=== PATIENT | male | born 1990 | race African-American/Black ===

== ENCOUNTER 2017-01-21 20:11 | Emergency (ER) | payer SELFPAY ==
[~2017-01-21] VITALS: Ht 177.8 cm; Wt 66.2 kg
[~2017-01-21 20:11] MED LIST: FAMO-137 PO; NO ROUTINE MEDS; PROC-14 PO
--- OUTSIDE RECORDS SUMMARY | 2017-01-21 20:16 | XMS REPORT | Continuity of Care Document ---
Author Author [facility] Organization [facility] Address Unknown Phone Unavailable Support Name Relationship Address Phone JAMILAH LANDEROS MD Caregiver [address] [place] [address] [place] [address] Unavailable TRACEE COLINDRES Next Of Kin [address] [place] [address] Insurance Providers Guarantor Thierry Colindres Address [address] [place] [address] Email DENIED TO PT PORTAL Payer Self Pay Subscriber's Name Thierry Colindres Relationship 18 Self Chief Complaint and Reason for Visit Chief Complaint Abdominal Pain Reason for Visit Gastritis Duodenal ulcer Problems Active Problems Medical Problem Onset Date Status Epigastric abdominal pain Unknown Nausea and vomiting Unknown Past Problems Medical Problem Onset Date Anemia Unknown Duodenal ulcer Unknown GI bleed Unknown Gastritis Unknown Medications Current Home Medications Medication Dose Units Route Directions Days Qty Instructions Start Date Famotidine (Pepcid) 20 Mg Tablet 40 Mg Oral Daily 60 Tablet No Routine Meds 09/10/16 Prochlorperazine Maleate (Compazine) 10 Mg Tablet 10 Mg Oral Four Times Daily 30 Tablet 09/12/16 Social History Social History Problem Response Recorded Date/Time Onset Date Status Hx Substance Use No 09/12/2016 10:17pm Not Applicable Not Applicable Hx Alcohol Use No 09/12/2016 10:17pm Not Applicable Not Applicable Has the pt used tobacco in the last 12 months Yes 09/10/2016 7:33pm Not Applicable Not Applicable Query Response Start Date Stop Date Smoking Status Current every day smoker Hospital Discharge Instructions No hospital discharge instructions. Plan of Care Discharge Date 09/12/16 11:45pm Disposition 01 DISCHARGED HOME, SELF-CARE Condition at Discharge Improved Instructions/Education Provided DI for Gastritis DI for Gastric Ulcer Prescriptions See Medication Section Referrals DIEGO SHIELDS DO Address: [address] [place] [phone] Additional Instructions/Education Fill your pantoprazole intake according to prescription as soon as possible Pepcid 20 mg, 2 tablets daily Compazine 10 mg one tablet up to 4 times daily as needed for nausea or abdominal pain See Dr. Shields or any physician at [facility], call Wednesday for appointment Care Plan and Goals Physician Care Plan Problem: Duodenal ulcer with gastritis Goal: Follow up with primary care provider Instructions: Take medications and follow care plan as discussed/written Fill your pantoprazole intake according to prescription as soon as possible Pepcid 20 mg, 2 tablets daily Compazine 10 mg one tablet up to 4 times daily as needed for nausea or abdominal pain See Dr. Shields or any physician at [facility], call Wednesday for appointment Functional Status No functional status results. Allergies, Adverse Reactions, Alerts No known allergies. Immunizations Query Response on File Recorded Date/Time Hx Influenza Vaccination No 09/10/16 7:33pm Hx Pneumococcal Vaccination No 09/10/16 7:33pm Hx Influenza Vaccination No 09/10/16 7:33pm Influenza Vaccine Hx NO 09/12/16 10:17pm Vital Signs Acute Vital Signs Vital Response Date/Time Temperature (Fahrenheit) 98.1 deg F (96.8 - 99.1) 09/12/2016 11:59pm Temperature (Calculated Celsius) 36.46787 degrees C (36.0 - 37.3) 09/12/2016 11:59pm Temperature Source Oral 09/11/2016 1:55pm Pulse Rate (adult) 76 bpm (60 - 100) 09/12/2016 11:59pm Respiratory Rate 16 breaths/min (10 - 20) 09/12/2016 11:59pm O2 Sat by Pulse Oximetry 99 % (90 - 100) 09/12/2016 11:59pm Oxygen Delivery Method Room Air 09/11/2016 4:55pm Oxygen Delivery Method Room Air 09/11/2016 1:45pm Oxygen Flow Rate 3.00 L/min 09/11/2016 1:20pm Blood Pressure 123/67 mm Hg 09/12/2016 11:59pm Blood Pressure Source Automatic Cuff 09/11/2016 4:55pm Height (Feet) 5 feet 09/12/2016 9:40pm Height (Inches) 9.00 inches 09/12/2016 9:40pm Weight (Kilograms) 66.200 kg 09/12/2016 9:40pm Body Mass Index (BMI) 21.0 09/12/2016 9:40pm Results Laboratory Results Test Name Result Units Flags Reference Collection Date/Time Result Date/ Time Comments White Blood Count 8.4 T/MM3 4.5-11.0 09/12/2016 10:38pm 09/12/2016 10: 50pm Red Blood Count 3.54 M/MM3 L 4.50-5.90 09/12/2016 10:38pm 09/12/2016 10: 50pm Hemoglobin 9.3 GM/DL D L 13.5-17.5 09/12/2016 10:38pm 09/12/2016 10:50pm Hematocrit 29.1 % L 41-53 09/12/2016 10:38pm 09/12/2016 10:50pm Mean Corpuscular Volume 82.2 UM3 80-100 09/12/2016 10:38pm 09/12/2016 10:50pm Mean Corpuscular Hemoglobin 26.3 UUG 26-34 09/12/2016 10:38pm 2015 10:50pm Mean Corpuscular Hemoglobin Concent 32.0 GM/DL 31-37 09/12/2016 10:38pm 09/12/2016 10:50pm RDW Standard Deviation 47.2 FL 36.9-50.2 09/12/2016 10:38pm 09/12/2016 10:50pm Platelet Count 436 T/MM3 H 130-400 09/12/2016 10:38pm 09/12/2016 10: 50pm Mean Platelet Volume 9.7 UM3 9.4-12.4 09/12/2016 10:38pm 09/12/2016 10: 50pm Neutrophils (%) (Auto) 66.4 % H 33-66 09/12/2016 10:38pm 09/12/2016 10: 50pm Lymphocytes (%) (Auto) 20.4 % L 23-45 09/12/2016 10:38pm 09/12/2016 10: 50pm Monocytes (%) (Auto) 10.3 % H 0-9.0 09/12/2016 10:38pm 09/12/2016 10: 50pm Eosinophils (%) (Auto) 2.4 % 0-4 09/12/2016 10:38pm 09/12/2016 10:50pm Basophils (%) (Auto) 0.4 % 0-2 09/12/2016 10:38pm 09/12/2016 10:50pm Immature Granulocyte % (Auto) 0.1 % 0.0-0.5 09/12/2016 10:38pm 2015 10:50pm Absolute Neutrophils (auto) 5.6 T/MM3 1.8-7.7 09/12/2016 10:38pm 2015 10:50pm Absolute Lymphocytes (auto) 1.7 T/MM3 1-4.8 09/12/2016 10:38pm 2015 10:50pm Absolute Monocytes (auto) 0.9 T/MM3 H 0-0.8 09/12/2016 10:38pm 2015 10:50pm Absolute Eosinophils (auto) 0.2 T/MM3 0-0.5 09/12/2016 10:38pm 2015 10:50pm Absolute Basophils (auto) 0.0 T/MM3 0-0.2 09/12/2016 10:38pm 2015 10:50pm Absolute Immature Granulocyte (auto 0.01 T/MM3 0.00-0.03 09/12/2016 10: 38pm 09/12/2016 10:50pm Icterus Index < 2 0-7 09/12/2016 10:38pm 09/12/2016 10:53pm Chemistry Specimen Hemolysis < 15 0-25 09/12/2016 10:38pm 09/12/2016 10:53pm 0-25: Specimen Exhibited No Hemolysis. Turbidity < 20 0-20 09/12/2016 10:38pm 09/12/2016 10:53pm Sodium Level 142 MEQ/L 134-144 09/12/2016 10:38pm 09/12/2016 10:53pm Potassium Level 4.4 MEQ/L 3.6-5 09/12/2016 10:38pm 09/12/2016 10:53pm Chloride Level 104 MEQ/L 98-107 09/12/2016 10:38pm 09/12/2016 10:53pm Carbon Dioxide Level 27 MEQ/L 22-30 09/12/2016 10:38pm 09/12/2016 10: 53pm Anion Gap 11 MEQ/L 5-15 09/12/2016 10:38pm 09/12/2016 10:53pm Blood Urea Nitrogen 11.0 MG/DL 9-20 09/12/2016 10:38pm 09/12/2016 10: 53pm Creatinine 1.1 MG/DL D 0.8-1.5 09/12/2016 10:38pm 09/12/2016 10:58pm BUN/Creatinine Ratio 10 RATIO 6-26 09/12/2016 10:38pm 09/12/2016 10: 53pm Glomerular Filtration Rate Calc 81 09/12/2016 10:38pm 09/12/2016 10 :53pm Glucose Level 88 MG/DL 75-110 09/12/2016 10:38pm 09/12/2016 10:53pm Calculated Osmolality 271 MOSM/KG 261-280 09/12/2016 10:38pm 2015 10:53pm Calcium Level 9.0 MG/DL 8.4-10.2 09/12/2016 10:38pm 09/12/2016 10:53pm Total Bilirubin 0.30 MG/DL 0.20-1.30 09/12/2016 10:38pm 09/12/2016 10: 53pm Alkaline Phosphatase 49 U/L 38-126 09/12/2016 10:38pm 09/12/2016 10: 53pm Total Protein 6.9 G/DL 6.3-8.2 09/12/2016 10:38pm 09/12/2016 10:53pm Albumin 3.9 G/DL 3.5-5.0 09/12/2016 10:38pm 09/12/2016 10:53pm Globulin 3.0 G/DL 2.4-3.6 09/12/2016 10:38pm 09/12/2016 10:53pm Albumin/Globulin Ratio 1.3 RATIO 1.1-2.2 09/12/2016 10:38pm 09/12/2016 10:53pm Aspartate Amino Transf (AST/SGOT) 24 U/L 17-59 09/12/2016 10:38pm 09/12 10:53pm Alanine Aminotransferase (ALT/SGPT) 38 U/L 21-72 09/12/2016 10:38pm 10:53pm Lipase 242 U/L D 23-300 09/12/2016 10:38pm 09/12/2016 10:58pm Procedures Procedure Status Date Provider(s) Esophagogastroduodenoscopy (EGD) with closed biopsy Completed 09/11/16 SHEYLA BAE MD Encounters Encounter Location Arrival/Admit Date Discharge/Depart Date Attending Provider Departed Emergency Room [facility] 09/12/16 9:40pm 09/12/16 11: 45pm JAMILAH LANDEROS MD Discharged Inpatient [facility] 09/10/16 6:31pm 09/11/16 5:40pm KARTHIK AYERS MD Recent Diagnosis
[2017-01-21 20:20] VITALS: Ht 177.8 cm; Wt 66.2 kg
--- NOTE | 2017-01-21 20:59 | NUR ---
RETURN FROM CT
[2017-01-21] MEDS ORDERED: HYDR-4246 PO (21:24)
[2017-01-21] MEDS ORDERED: NAPR500T PO (21:24)
[2017-01-21] MEDS ORDERED: CYCL-375 PO (21:24)
--- NOTE | 2017-01-21 21:24 | ERPDOC ---
Departure Disposition Decision Date: January 21, 2017 Disposition Decision Time: 21:22 Disposition: 01 DISCHARGED HOME, SELF-CARE Impression Impression Impression: Primary Impression: Cervical strain, acute Encounter type: initial encounter Qualified Codes: S16.1XXA - Strain of muscle, fascia and tendon at neck level, initial encounter Severity: Mild Condition: Improved Seen By: Physician only Referrals: [facility] 2 Days Patient Instructions: Acute Neck Pain (ED) Problems/Meds/Labs Reviewed?: Yes Medications reviewed and manag: Yes Follow up care ordered?: Yes Mental Status: Alert, Oriented Scripts Naproxen (Naprosyn) 500 Mg Tablet 1 TAB PO BID Y for PAIN for 10 Days, #20 TAB 0 Refills Prov: MO MELENDEZ DO 01/21/17 Cyclobenzaprine HCl (Cyclobenzaprine HCl) 10 Mg Tablet 10 MG PO TID Y for MUSCLE SPASM for 5 Days, #15 TAB 0 Refills Prov: MO MELENDEZ DO 01/21/17 Hydrocodone/Acetaminophen ([place] 5-325 Tablet) 5-325 Tablet 1 TAB PO Q4HR Y for PAIN for 2 Days, #12 TAB 0 Refills Prov: MO MELENDEZ DO 01/21/17 HPI - General Medical General Chief Complaint: Neck Injury Stated Complaint: SHOULDER PAIN Time Seen by Provider: 20:30 Source: patient Exam Limitations: no limitations HPI - General Medical Initial Comments 26-year-old male presents to the emergency department with a chief complaint of a neck injury. Patient was playing basketball 1 day ago when he felt like he "jammed his neck" in a collision with another player. Patient denies striking his head or loss of consciousness. Patient denies any other injuries. No other complaints or associated symptoms. Patient's symptoms have been persistent in nature since onset. Patient describes this pain as moderate. Pain is spastic in nature. There is no radiation of pain. Patient does not note anything that improves his discomfort as he has not attempted anything prior to arrival to the emergency Department. Patient does note that the pain does increase with movement of the neck. Occurred At: other (B[place] Court) Onset: Constant Allergies: Coded Allergies: No Known Allergies (Unverified , 01/21/17) Past History Patient Surgical History None Past Medical History GI: GERD, ulcers Surgical History Denies Surgeries Family History Family History: Negative Vaccines Hx Influenza Vaccination: No Hx Pneumococcal Vaccination: No Social History Smoking Status: Current every day smoker Does patient use chewing tobac: No Second Hand Exposure: No Substance Use Type: marijuana Substance last used: hours (ago) Alcohol Intake: none Review of Systems Constitutional Constitutional: DENIES: chills, fever Eyes General: DENIES: erythema, exudate Lids/Accessories: DENIES: erythema, swelling Vision: DENIES: acuity, blurring ENMT Ears: DENIES: drainage, erythema Hearing: DENIES: hearing loss Balance: DENIES: ataxia, falling to one side Sinuses: DENIES: congestion, pain Nose: DENIES: nosebleeds, pain Mouth/Throat: DENIES: painful swallowing, sore throat Teeth: DENIES: pain Jaw: DENIES: pain Cardiovascular Cardiac: DENIES: chest pain, dyspnea on exertion Rhythm/Rate: DENIES: irregular beat, palpitations Vascular: DENIES: pedal edema, unilateral swelling Pulmonary Respiratory: DENIES: cough, pleuritic chest pain, sputum, tachypnea GI Upper Abdomen: DENIES: nausea, pain, vomiting Lower Abdomen: DENIES: diarrhea, pain General: DENIES: dysuria, frequency Musculoskeletal General: pain, tenderness, DENIES: joint pain Integumentary Skin: DENIES: itching, rash Neurological General: DENIES: change in strength, headache, numbness, weakness Psychiatric Psychiatric: DENIES: emotional instability, suicidal ideation/attempt Endocrine Endocrine: DENIES: polydipsia, polyphagia Hematologic/Lymphatic Hematologic/Lymphatic: DENIES: frequent nosebleeds, lymphadenopathy Allergic/Immunological Allergic/Immunoligical: DENIES: allergic reactions, hives Physical Exam General General Nourishment: well nourished, well developed, appears stated age, no acute distress, adult General Body Habitus: well groomed Vitals and Pain First Documented Vital Signs Date Time Temp Pulse Resp B/P Pulse Ox O2 Delivery O2 Flow Rate FiO2 01/21/17 20:20 97.8 82 14 130/75 96 Room Air Weight: Kilograms: 66.200 Height (feet): 5 Height (inches): 10.00 Triage Pain Scale: RN VS reviewed by Provider: Yes Normal Exams: Head: Normocephalic w/o trauma Eyes: Pupils are PERRLA w/ EOMI, No scleral icterus, irritation, or foreign bodies noted ENMT: No facial trauma, nasal exudates, pharyngeal erythema, or exudates are noted Dental: No fractured, loose, or missing teeth noted Neck: without adenopathy, JVD, bruits or thyromegaly Chest/Resp: Clear all armstrong, with good airflow, and symmetry bilaterally CV: Regular rate and rhythm, without murmur or gallop, Pulses 2+ all extremities, capillary refill, <2 seconds all ext., no pedal edema noted Abdomen: Bowel sounds positive, soft, non-tender, non-distended, no hepatosplenomegaly, masses or bruits noted Lymphatic: No lymphadenopathy, or lymphedema noted Musculoskeletal: No tenderness, or deformity noted, good range of motion, all extremities Integumentary: No rashes, hives, or bruising noted, hair and nails, without abnormality Neurologic: Patient is alert, and oriented, cranial nerves, motor/sensory/ cerebellar, exams w/o gross deficits, to observation Psychiatric: Patient exhibits, appropriate attention, emotion and affect Neck (brief) Neck: FOUND: trachea midline Comments No midline cervical spine tenderness or deformity to palpation. Positive right- sided paraspinal muscle tenderness with spasm. Differential Diagnoses Considering: Other (sprain/strain/fracture/contusion) Progress Results/Orders Orders Procedure Category Date Status Time Ct Cervical Spine W/O CT 01/21/17 Taken Contrast 20:36 Hydrocodone/Acetaminophen PHA 01/21/17 In Process ([place] 5/325) 21:30 Cyclobenzaprine PHA 01/21/17 In Process (Flexeril) 21:30 Naproxen (Naprosyn PHA 01/21/17 In Process 500mg) 21:30 Medications Current ED Medications Acetaminophen/ Hydrocodone Bitart ([place] 5/325) 1 tab O ONCE PO ; Start at 21:30; Stop 01/21/17 at 21:31 Cyclobenzaprine HCl (Flexeril) 10 mg O ONCE PO ; Start 01/21/17 at 21:30; Stop 01/21/17 at 21:31 Naproxen (NAPROSYN 500mg) 500 mg O ONCE PO ; Start 01/21/17 at 21:30; Stop 07/30 at 21:31 Progress Progress Imaging is discussed in detail with the patient and questions are answered. Patient is given analgesic pain medication with improvement of symptoms in the emergency Department. Patient is discharged home in improved condition. Patient is to follow up as instructed. Patient is to return to the emergency department if his condition worsens or changes in any manner. Patient is to follow up as instructed. Patient is in agreement with the current plan of management. Prescriptions for [place], Naprosyn, and Flexeril are provided. Patient is counseled in detail regarding the use of verbalizes agreement and understanding. CT CT : CT: C-Spine no contrast Interpretation: Normal, Faxed Report MO MELENDEZ DO January 21, 2017 21:24
[2017-01-21] MEDS ORDERED: NAPROXEN 500 MG TABLET PO ONE (21:30)
[2017-01-21] MEDS ORDERED: HYDROCODONE/APAP 5 mg/325 mg TABLET PO ONE (21:30)
[2017-01-21] MEDS ORDERED: CYCLOBENZAPRINE 10 MG TABLET PO ONE (21:30)
[2017-01-21 22:10] VITALS: BP 130/75; PULSE 82; RESP 14; TEMP 97.8; O2SAT 96
--- NOTE | 2017-01-21 22:10 | NUR ---
DEPART PT IS GIVEN DISMISSAL INSTRUCTIONS WITH VERBAL UNDERSTANDING. PT IS GIVEN SCRIPTS X2. PT LEAVES AMBULATORY. PT DOESNT HAVE A PCP. SHOWED LIST OF PROVIDERS ON DISCHARGE PAPERWORK
--- NOTE | 2017-01-22 10:41 | DI ---
Indication: ITS.REASON: pain CT CERVICAL SPINE W/O CONTRAST: Comparison: None Technique: Nonenhanced axial imaging with dose reduction imaging technology and reformatted sagittal and coronal imaging. Findings: Patient shows no acute vertebral body fractures or significant malalignments. Canal diameter is well-maintained. No indication of prevertebral soft tissue swelling noted. No acute findings noted in the pulmonary apices. Impression: 1. No acute fracture or significant malalignment or compromise to the spinal canal diameter identified. 2. Findings were communicated to the ordering clinician by the stat read service on a callback basis. .
== END 2017-01-21 22:10 | disposition home or self-care (01) ==
LOC: ED 20:11
DX: S16.1XXA Strain of muscle, fascia and tendon at neck level, initial encounter (principal); W51.XXXA Accidental striking against or bumped into by another person, initial encounter; Y93.67 Activity, basketball; Y92.310 Basketball court as the place of occurrence of the external cause; Y99.8 Other external cause status